=== PATIENT | female | born 1975 | race Caucasian/White ===

== ENCOUNTER 2016-04-05 16:52 | Emergency (ER) | payer OTHER ==
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
--- NOTE | 2016-04-05 18:21 | ED CLINICAL REPORT ---
Clinical Report - Physicians/Mid Levels [facility] [address] [place] [address] 04/05/2016 16:52 Patient: JEFRY DUFFY Time Seen: 17:37; initial patient contact. Arrived- By private vehicle. Historian- patient. HISTORY OF PRESENT ILLNESS Chief Complaint: Injury to right knee and Chief Complaint- 2 weeks ago. The injury happened 2 weeks ago. Occurred at home. Fell. She sustained a twisting injury. Patient is experiencing mild pain. No other injury. REVIEW OF SYSTEMS The patient complains of mild pain on weight bearing. She has had swelling. No weakness or numbness. All systems otherwise negative, except as recorded above. PAST HISTORY See nurses notes. Tetanus immunization status is up-to-date. Problems: Substance Abuse. Myofascial Strain. Medications: Paxil Oral 10 mg, daily. Flexeril 10mg tid (1 hr ago ). Gabapentin Oral 100 mg, 3x a day, last dose last night . Metoprolol Tartrate Oral 50 mg, day. Allergies: ASA. Baclofen. Celexa. Erythromycin. Methadone. Methocarbamol. morphine. NSAIDs. Polysporin. Septra. Soma. SOCIAL HISTORY Smoker- current status unknown (cigarette). Alcohol use. History of occasional drug use. ADDITIONAL NOTES The nursing notes have been reviewed with agreement regarding the chief complaint, HPI, ROS, PMH and patient medications and allergies. PHYSICAL EXAM Vital Signs: 04/05/2016 17:36 BP: 123/68. HR: 63. RR: 16. O2 saturation: 100%. Temp: 98.3 F. Pain level now: 7/10. Have been reviewed. Appearance: Alert. Oriented X3. No acute distress. Extremities: Mild soft-tissue tenderness present in the right anterior knee. Right knee: mild tenderness located in the patella. Neurovascular intact distally. No ligamentous laxity present. No joint effusion. No erythema, swelling, abrasion or ecchymosis. No limitation in ROM. Lower extremity exam otherwise negative. Neuro, Vascular and Tendons: Vascular status intact. Sensation intact. Motor intact. Tendon function intact. Gait: Normal gait. CLINICAL IMPRESSION Sprain of the medial collateral ligament of the right knee. Fall on same level by tripping. INSTRUCTIONS Apply ice for 10 minutes four times a day for three days. Wear elastic wrap (Roger wrap) as directed today, for three days as needed and until better. No strenuous activity. No dietary restrictions. Your Current Medications: CONTINUE TAKING THE FOLLOWING MEDICATIONS: Flexeril* : 10mg tid, 1 hr ago. Gabapentin Oral : 100 mg 3x a day, Last: last night. Metoprolol Tartrate Oral : 50 mg day. Paxil Oral : 10 mg daily. OTC Medications: Take acetaminophen (Tylenol, Datril, etc.) according to label instructions. Available over the counter. Follow-up: Follow up with your doctor in one week if not better. Understanding of the discharge instructions verbalized by patient and family. (Electronically signed by Talisha Garcia PA-C 04/06/2016 0:27)
--- NOTE | 2016-04-05 18:21 | ED CLINICAL REPORT ---
Clinical Report - Physicians/Mid Levels Located Within [facility] [address] [place] [address] 04/05/2016 16:52 Patient: JEFRY DUFFY Time Seen: 17:37; initial patient contact. Arrived- By private vehicle. Historian- patient. HISTORY OF PRESENT ILLNESS Chief Complaint: Injury to right knee and Chief Complaint- 2 weeks ago. The injury happened 2 weeks ago. Occurred at home. Fell. She sustained a twisting injury. Patient is experiencing mild pain. No other injury. REVIEW OF SYSTEMS The patient complains of mild pain on weight bearing. She has had swelling. No weakness or numbness. All systems otherwise negative, except as recorded above. PAST HISTORY See nurses notes. Tetanus immunization status is up-to-date. Problems: Substance Abuse. Myofascial Strain. Medications: Paxil Oral 10 mg, daily. Flexeril 10mg tid (1 hr ago ). Gabapentin Oral 100 mg, 3x a day, last dose last night . Metoprolol Tartrate Oral 50 mg, day. Allergies: ASA. Baclofen. Celexa. Erythromycin. Methadone. Methocarbamol. morphine. NSAIDs. Polysporin. Septra. Soma. SOCIAL HISTORY Smoker- current status unknown (cigarette). Alcohol use. History of occasional drug use. ADDITIONAL NOTES The nursing notes have been reviewed with agreement regarding the chief complaint, HPI, ROS, PMH and patient medications and allergies. PHYSICAL EXAM Vital Signs: 04/05/2016 17:36 BP: 123/68. HR: 63. RR: 16. O2 saturation: 100%. Temp: 98.3 F. Pain level now: 7/10. Have been reviewed. Appearance: Alert. Oriented X3. No acute distress. Extremities: Mild soft-tissue tenderness present in the right anterior knee. Right knee: mild tenderness located in the patella. Neurovascular intact distally. No ligamentous laxity present. No joint effusion. No erythema, swelling, abrasion or ecchymosis. No limitation in ROM. Lower extremity exam otherwise negative. Neuro, Vascular and Tendons: Vascular status intact. Sensation intact. Motor intact. Tendon function intact. Gait: Normal gait. CLINICAL IMPRESSION Sprain of the medial collateral ligament of the right knee. Fall on same level by tripping. INSTRUCTIONS Apply ice for 10 minutes four times a day for three days. Wear elastic wrap (Roger wrap) as directed today, for three days as needed and until better. No strenuous activity. No dietary restrictions. Your Current Medications: CONTINUE TAKING THE FOLLOWING MEDICATIONS: Flexeril* : 10mg tid, 1 hr ago. Gabapentin Oral : 100 mg 3x a day, Last: last night. Metoprolol Tartrate Oral : 50 mg day. Paxil Oral : 10 mg daily. OTC Medications: Take acetaminophen (Tylenol, Datril, etc.) according to label instructions. Available over the counter. Follow-up: Follow up with your doctor in one week if not better. Understanding of the discharge instructions verbalized by patient and family. (Electronically signed by Talisha Garcia PA-C 04/06/2016 0:27)
--- NOTE | 2016-04-07 08:54 | ED MED RECONCILIATION SUMMARY ---
Patient: JEFRY DUFFY Medication Reconciliation Report [facility] VisitID: [id number] [address] [place] [address] 40y, F Registration Date/Time: 04/05/2016 Weight: 54.4 kg Height/Length: 66 in. BMI: 19.4 ALLERGIES: ASA, Baclofen, Celexa, Erythromycin, Methadone, Methocarbamol, morphine, NSAIDs, Polysporin, Septra, Soma The patient's Home Medications are listed below: CONTINUE TAKING THE FOLLOWING MEDICATIONS: Flexeril 10mg tid, 1 hr ago Gabapentin Oral 100 mg, 3x a day, last dose: last night Metoprolol Tartrate Oral 50 mg, day Paxil Oral 10 mg, daily The source(s) of the original Home Medication information: Not obtained. The following Medications were given to the patient in the Emergency Department: None. The following Medications were prescribed to the patient: Take acetaminophen (Tylenol, Datril, etc.) according to label instructions. Available over the counter. -- Talisha Garcia PA-C
--- NOTE | 2016-04-07 08:54 | ED MAR SUMMARY ---
..... Medication Administration Record [facility] [address] [place] [address] Patient: JEFRY DUFFY Visit ID: [id number] 40y, F Weight: 54.4 kg Height/Length: 66 in BMI: 19.4 ALLERGIES: ASA, Baclofen, Celexa, Erythromycin, Methadone, Methocarbamol, morphine, NSAIDs, Polysporin, Septra, Soma
--- NOTE | 2016-04-07 08:54 | ED MED RECONCILIATION SUMMARY ---
Patient: JEFRY DUFFY Medication Reconciliation Report [facility] VisitID: [id number] [address] [place] [address] 40y, F Registration Date/Time: 04/05/2016 Weight: 54.4 kg Height/Length: 66 in. BMI: 19.4 ALLERGIES: ASA, Baclofen, Celexa, Erythromycin, Methadone, Methocarbamol, morphine, NSAIDs, Polysporin, Septra, Soma The patient's Home Medications are listed below: CONTINUE TAKING THE FOLLOWING MEDICATIONS: Flexeril 10mg tid, 1 hr ago Gabapentin Oral 100 mg, 3x a day, last dose: last night Metoprolol Tartrate Oral 50 mg, day Paxil Oral 10 mg, daily The source(s) of the original Home Medication information: Not obtained. The following Medications were given to the patient in the Emergency Department: None. The following Medications were prescribed to the patient: Take acetaminophen (Tylenol, Datril, etc.) according to label instructions. Available over the counter. -- Talisha Garcia PA-C
--- NOTE | 2016-04-07 08:54 | ED DISCHARGE INSTRUCTIONS ---
Patient: JEFRY DUFFY General Instructions [facility] VisitID: [id number] [place] [address] 40y, F Registration Date/Time: 04/05/2016 Sprain of the medial collateral ligament of the right knee. Fall on same level by tripping. INSTRUCTIONS Apply ice for 10 minutes four times a day for three days. Wear elastic wrap (Roger wrap) as directed today, for three days as needed and until better. No strenuous activity. No dietary restrictions. Your Current Medications: CONTINUE TAKING THE FOLLOWING MEDICATIONS: Flexeril* : 10mg tid, 1 hr ago. Gabapentin Oral : 100 mg 3x a day, Last: last night. Metoprolol Tartrate Oral : 50 mg day. Paxil Oral : 10 mg daily. OTC Medications: Take acetaminophen (Tylenol, Datril, etc.) according to label instructions. Available over the counter. Follow-up: Follow up with your doctor in one week if not better. Understanding of the discharge instructions verbalized by patient and family. ADDITIONAL INFORMATION Sprain, Knee A sprain is an injury to the ligaments or capsule that holds a joint together. There are no broken bones. Most sprains take three to six weeks to heal. If the ligament is completely torn (severe sprain), it can take months to recover from. Most knee sprains are treated with a splint, knee immobilizer or elastic wrap for support. Severe sprains may require surgery. Home care The following guidelines will help you care for your injury at home: Stay off the injured leg as much as possible until you can walk on it without pain. If you have a lot of pain with walking, crutches or a walker may be prescribed. (These can be rented or purchased at many pharmacies and surgical or orthopedic supply stores). Follow your doctor's advice regarding when to begin bearing weight on that leg. Keep your leg elevated to reduce pain and swelling. When sleeping, place a pillow under the injured leg. When sitting, support the injured leg so it is level with your waist. This is very important during the first 48 hours. Apply an ice pack (ice cubes in a plastic bag, wrapped in a towel) over the injured area for 20 minutes every 12 hours the first day. You can place the ice pack directly over the splint. If a Velcro knee immobilizer was applied, you can open this to apply the ice pack directly to the knee. Continue with ice packs 34 times a day for the next two days, then as needed for the relief of pain and swelling. You may use acetaminophen or ibuprofen to control pain, unless another pain medicine was prescribed. If you have chronic liver or kidney disease or ever had a stomach ulcer or GI bleeding, talk with your doctor before using these medicines. If you were given a splint, keep it completely dry at all times. Bathe with your splint out of the water, protected with a large plastic bag, rubber-banded at the top end. If a fiberglass splint gets wet, you can dry it with a hair-dryer. If you have a Velcro knee immobilizer, you can remove this to bathe, unless told otherwise. Follow-up care Follow up with your doctor as advised. Any X-rays you had today dont show any broken bones, breaks, or fractures. Sometimes fractures dont show up on the first X-ray. Bruises and sprains can sometimes hurt as much as a fracture. These injuries can take time to heal completely. If your symptoms dont improve or they get worse, talk with your doctor. You may need a repeat X-ray. When to seek medical care Get prompt medical attention if any of the following occur: The plaster cast or splint becomes wet or soft The fiberglass cast or splint remains wet for more than 24 hours Pain or swelling increases Toes become cold, blue, numb or tingly You have been given the following additional information: Knee Sprain No strenuous activity. (Electronically signed by Talisha Garcia PA-C 04/06/2016 0:27)
--- NOTE | 2016-04-07 08:54 | ED MAR SUMMARY ---
..... Medication Administration Record [facility] [address] [place] [address] Patient: JEFRY DUFFY Visit ID: [id number] 40y, F Weight: 54.4 kg Height/Length: 66 in BMI: 19.4 ALLERGIES: ASA, Baclofen, Celexa, Erythromycin, Methadone, Methocarbamol, morphine, NSAIDs, Polysporin, Septra, Soma
== END 2016-04-05 18:30 | disposition home or self-care (01) ==
LOC: ED SRH 16:52
DX: S83.411A Sprain of medial collateral ligament of right knee, initial encounter (principal); W01.0XXA Fall on same level from slipping, tripping and stumbling without subsequent striking against object, initial encounter; Y93.01 Activity, walking, marching and hiking; Y92.009 Unspecified place in unspecified non-institutional (private) residence as the place of occurrence of the external cause; Y99.9 Unspecified external cause status; Z79.899 Other long term (current) drug therapy; Z88.5 Allergy status to narcotic agent; Z88.8 Allergy status to other drugs, medicaments and biological substances; Z88.1 Allergy status to other antibiotic agents; Z88.6 Allergy status to analgesic agent

== ENCOUNTER 2016-07-27 13:39 | Emergency (ER) | payer OTHER ==
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
--- NOTE | 2016-07-27 13:59 | ED ORDER SUMMARY ---
..... Patient: JEFRY DUFFY OrderSheet [facility] VisitID: [id number] [place] [address] 41y, F Registration Date/Time: 07/27/2016 ORDER SHEET Weight: 52.1 kg (stated) Allergies: ASA, Baclofen, Celexa, Erythromycin, Methadone, Methocarbamol, morphine, NSAIDs, Polysporin, Septra, Soma GENERAL ORDERS: Cervical Spine 2 or 3V Urgent (13:56 07/27/2016 Asad Townsend) (Ack 14:00 LNations ER Tech1) (14:36 LNations ER Tech1) MEDICATION ORDERS: IV FLUIDS: ORDER SHEET NOTES: [Electronically signed by Wen Rea P.A.-C (14:48 07/27/2016)] [Electronically signed by Radha Romero R.N. (15:03 07/27/2016)] [Electronically locked/signed by Radha Romero R.N. (15:03 07/27/2016)]
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
--- NOTE | 2016-07-27 13:59 | ED ORDER SUMMARY ---
..... Patient: JEFRY DUFFY OrderSheet [facility] VisitID: [id number] [place] [address] 41y, F Registration Date/Time: 07/27/2016 ORDER SHEET Weight: 52.1 kg (stated) Allergies: ASA, Baclofen, Celexa, Erythromycin, Methadone, Methocarbamol, morphine, NSAIDs, Polysporin, Septra, Soma GENERAL ORDERS: Cervical Spine 2 or 3V Urgent (13:56 07/27/2016 Asad Townsend) (Ack 14:00 LNations ER Tech1) (14:36 LNations ER Tech1) MEDICATION ORDERS: IV FLUIDS: ORDER SHEET NOTES: [Electronically signed by Wen Rea P.A.-C (14:48 07/27/2016)] [Electronically signed by Radha Romero R.N. (15:03 07/27/2016)] [Electronically locked/signed by Radha Romero R.N. (15:03 07/27/2016)]
--- NOTE | 2016-07-27 14:57 | DIAGNOSTIC IMAGING REPORT ---
PROCEDURE: XR CERVICAL SPINE 2 OR 3 VIEW INDICATION: NECK PAIN TECHNIQUE: Three views. COMPARISON: Cervical spine films 09/15/2015 FINDINGS: Mild spondylosis C5-6. No evidence of an acute process or fracture. IMPRESSION: 1. Mild C5-6 spondylosis, otherwise negative cervical spine.
--- NOTE | 2016-07-27 15:03 | ED MAR SUMMARY ---
..... Medication Administration Record [facility] [address] [place] [place] [address] Patient: JEFRY DUFFY Visit ID: [id number] 41y, F Weight: 52.1 kg Height/Length: 66 in BMI: 18.5 ALLERGIES: ASA, Baclofen, Celexa, Erythromycin, Methadone, Methocarbamol, morphine, NSAIDs, Polysporin, Septra, Soma
--- NOTE | 2016-07-27 15:03 | ED MED RECONCILIATION SUMMARY ---
Patient: JEFRY DUFFY Medication Reconciliation Report [facility] VisitID: [id number] [address] [place] [address] 41y, F Registration Date/Time: 07/27/2016 Weight: 52.1 kg Height/Length: 66 in. BMI: 18.5 ALLERGIES: ASA, Baclofen, Celexa, Erythromycin, Methadone, Methocarbamol, morphine, NSAIDs, Polysporin, Septra, Soma The patient's Home Medications are listed below: THE FOLLOWING MEDICATIONS NEED TO BE RECONCILED: Flexeril 10mg tid, 1 hr ago Gabapentin Oral 100 mg, 3x a day, last dose: last night Metoprolol Tartrate Oral 50 mg, day Zoloft Oral The source(s) of the original Home Medication information: patient The following Medications were given to the patient in the Emergency Department: None. The following Medications were prescribed to the patient: Take OTC medications according to label instructions. Available over the counter. -- Wen Rea, P.A.-C Acetaminophen (available over the counter): take according to label instructions. -- Wen Rea, P.A.-C
--- NOTE | 2016-07-27 15:03 | ED MED RECONCILIATION SUMMARY ---
Patient: JEFRY DUFFY Medication Reconciliation Report [facility] VisitID: [id number] [address] [place] [address] 41y, F Registration Date/Time: 07/27/2016 Weight: 52.1 kg Height/Length: 66 in. BMI: 18.5 ALLERGIES: ASA, Baclofen, Celexa, Erythromycin, Methadone, Methocarbamol, morphine, NSAIDs, Polysporin, Septra, Soma The patient's Home Medications are listed below: THE FOLLOWING MEDICATIONS NEED TO BE RECONCILED: Flexeril 10mg tid, 1 hr ago Gabapentin Oral 100 mg, 3x a day, last dose: last night Metoprolol Tartrate Oral 50 mg, day Zoloft Oral The source(s) of the original Home Medication information: patient The following Medications were given to the patient in the Emergency Department: None. The following Medications were prescribed to the patient: Take OTC medications according to label instructions. Available over the counter. -- Wen Rea, P.A.-C Acetaminophen (available over the counter): take according to label instructions. -- Wen Rea, P.A.-C
--- NOTE | 2016-07-27 15:03 | ED MAR SUMMARY ---
..... Medication Administration Record [facility] [address] [place] [address] Patient: JEFRY DUFFY Visit ID: [id number] 41y, F Weight: 52.1 kg Height/Length: 66 in BMI: 18.5 ALLERGIES: ASA, Baclofen, Celexa, Erythromycin, Methadone, Methocarbamol, morphine, NSAIDs, Polysporin, Septra, Soma
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
== END 2016-07-27 14:35 | disposition home or self-care (01) ==
LOC: ED SRH 13:39
DX: S16.1XXA Strain of muscle, fascia and tendon at neck level, initial encounter (principal); Z88.6 Allergy status to analgesic agent; S09.90XA Unspecified injury of head, initial encounter; V73.6XXA Passenger on bus injured in collision with car, pick-up truck or van in traffic accident, initial encounter; Y93.9 Activity, unspecified; Y99.9 Unspecified external cause status; Y92.9 Unspecified place or not applicable; Z79.899 Other long term (current) drug therapy; Z88.1 Allergy status to other antibiotic agents; Z88.0 Allergy status to penicillin